=== PATIENT | female | born 1965 | race Caucasian/White ===

== ENCOUNTER 2018-05-17 21:43 | Outpatient (REF) | payer BC, SELFPAY ==
[2018-05-17 22:33] LABS: ALT 70 U/L (12-78); AST 60 U/L (15-37); Albumin 3.6 g/dL (3.4-5.0); Alkaline Phosphatase 70 U/L (46-116); Anion Gap 6.1 mmol/L (3-11); BUN 12 mg/dL (7-18); Bilirubin, Total 0.3 mg/dL (0.2-1.0); CO2 31.9 mmol/L (21.0-32.0); CREATININE 0.66 mg/dL (0.55-1.02); Chloride 103 mmol/L (98-107); Glucose 150 mg/dL (70-100); Potassium 3.7 mmol/L (3.5-5.1); Sodium 141 mmol/L (136-145); Total Protein 7.2 g/dL (6.4-8.2)
[2018-05-17 22:35] LABS: COMMENT (LAB VIEW ONLY) 107.91 mg/dL; Microalb ug/mg Crea 6.8 ug/mg Cr
== END 2018-05-17 22:03 ==
LOC: NCHCN 21:43
PROVIDERS: PCP Internal Medicine; Visit Provider Family Medicine
DX: E78.5 Hyperlipidemia, unspecified (principal); I10 Essential (primary) hypertension; E11.9 Type 2 diabetes mellitus without complications
CPT/HCPCS: 80053; 82043; 82570

== ENCOUNTER 2019-06-06 17:20 | Outpatient (REF) | payer OTHER, SELFPAY ==
[2019-06-06 22:03] LABS: ALT 54 U/L (14-59); AST 40 U/L (15-37); Albumin 3.8 g/dL (3.4-5.0); Alkaline Phosphatase 69 U/L (46-116); Anion Gap 10.2 mmol/L (3-11); BUN 13 mg/dL (7-18); Bilirubin, Total 0.3 mg/dL (0.2-1.0); CO2 27.8 mmol/L (21.0-32.0); CREATININE 1.02 mg/dL (0.55-1.02); Calcium 8.9 mg/dL (8.5-10.1); Calculated LDL 82 mg/dL (<100); Chloride 105 mmol/L (98-107); Cholesterol 146 mg/dL (<200); Estimated GFR 56.91 (mL/min/1.73m2); Glucose 184 mg/dL (74-106); HDL Cholesterol 43 mg/dL (40-60); Potassium 3.9 mmol/L (3.5-5.1); Sodium 143 mmol/L (136-145); Triglyceride 106 mg/dL (<150)
[2019-06-06 22:06] LABS: Microalb ug/mg Crea 13.1 ug/mg Cr
== END 2019-06-06 17:40 ==
LOC: NCHCN 17:20
PROVIDERS: PCP Family Medicine; Visit Provider Family Medicine
DX: E78.5 Hyperlipidemia, unspecified (principal); K76.0 Fatty (change of) liver, not elsewhere classified; I10 Essential (primary) hypertension; E11.65 Type 2 diabetes mellitus with hyperglycemia; Z00.00 Encounter for general adult medical examination without abnormal findings
CPT/HCPCS: 80053; 80061; 82043; 82570

== ENCOUNTER 2020-06-20 11:45 | Outpatient (REF) | payer OTHER, SELFPAY ==
[2020-06-20 14:02] LABS: ALT 47 U/L (14-59); AST 25 U/L (15-37); Albumin 3.7 g/dL (3.4-5.0); Alkaline Phosphatase 62 U/L (46-116); Anion Gap 10.4 mmol/L (3-11); BUN 11 mg/dL (7-18); Bilirubin, Total 0.5 mg/dL (0.2-1.0); CO2 24.6 mmol/L (21.0-32.0); CREATININE 0.7 mg/dL (0.55-1.02); Calcium 8.6 mg/dL (8.5-10.1); Calculated LDL 90 mg/dL (<100); Chloride 104 mmol/L (98-107); Cholesterol 160 mg/dL (<200); Glucose 141 mg/dL (74-106); HDL Cholesterol 50 mg/dL (40-60); Potassium 3.8 mmol/L (3.5-5.1); Sodium 139 mmol/L (136-145); Total Protein 7.1 g/dL (6.4-8.2); Triglyceride 102 mg/dL (<150)
[2020-06-20 14:09] LABS: COMMENT (LAB VIEW ONLY) 61.49 mg/dL; Microalb ug/mg Crea 9.1 ug/mg Cr
== END 2020-06-20 11:46 | disposition home or self-care (01) ==
LOC: NCHCN 11:45
PROVIDERS: PCP Family Medicine; Visit Provider Family Medicine
DX: E11.65 Type 2 diabetes mellitus with hyperglycemia (principal); E78.5 Hyperlipidemia, unspecified; I10 Essential (primary) hypertension
CPT/HCPCS: 80053; 80061; 82043; 82570

== ENCOUNTER 2022-02-09 22:26 | Outpatient (REF) | payer OTHER, SELFPAY ==
[2022-02-09 21:42] LABS: Anion Gap 7.9 mmol/L (3-11); BUN 8 mg/dL (7-18); CO2 29.1 mmol/L (21.0-32.0); CREATININE 0.8 mg/dL (0.55-1.02); Calcium 9.3 mg/dL (8.5-10.1); Calculated LDL 65 mg/dL (<100); Chloride 104 mmol/L (98-107); Cholesterol 152 mg/dL (<200); Estimated GFR 86.96 (mL/min/1.73m2); Glucose 155 mg/dL (74-106); HDL Cholesterol 51 mg/dL (40-60); Potassium 4.2 mmol/L (3.5-5.1); Sodium 141 mmol/L (136-145); Triglyceride 182 mg/dL (<150)
[2022-02-09 22:02] LABS: COMMENT (LAB VIEW ONLY) 137.65 mg/dL; Microalb ug/mg Crea 16.3 ug/mg Cr
== END 2022-02-09 22:27 | disposition home or self-care (01) ==
LOC: NCHCN 22:26
PROVIDERS: PCP Family Medicine; Visit Provider Family Medicine
DX: I10 Essential (primary) hypertension (principal); E78.5 Hyperlipidemia, unspecified
CPT/HCPCS: 80048; 80061; 82043; 82570

== ENCOUNTER 2022-05-18 15:49 | Outpatient (REF) | payer OTHER, SELFPAY ==
--- NOTE | 2022-05-18 11:00 | PAPFT_PTH ---
PATIENT: Mindy Gar LOC: [facility]#:[id number] AGE/SX: 56/F ROOM: RE05/18/[address]: Bonny Santos : 1965 BED: DIS: 05/18/2022 SPEC #: [id number] RECD: 05/18/22 18:06 STATUS: ABBY REMalinda #: [id number] ANA: 05/18/22 11:[address]: Bonny Santos DEPT: [facility] Cytology RECD BY: Citlali Balderrama Tissues: 1 - CX/ENDOCX FOR PAP SMEARS Procedures: PAP THIN PREP/[facility] Screening HPV DNA PROBE Comments: [id number]
== END 2022-05-18 15:50 | disposition home or self-care (01) ==
LOC: NCHCN 15:49
PROVIDERS: PCP Family Medicine; Visit Provider Family Medicine
DX: Z12.4 Encounter for screening for malignant neoplasm of cervix (principal); Z11.51 Encounter for screening for human papillomavirus (HPV); Z00.00 Encounter for general adult medical examination without abnormal findings
CPT/HCPCS: 88142; 87624

== ENCOUNTER 2022-10-07 21:34 | Outpatient (REF) | payer OTHER, SELFPAY ==
[2022-10-07 21:41] LABS: Anion Gap 9.7 mmol/L (3-11); BUN 11 mg/dL (7-18); CO2 28.3 mmol/L (21.0-32.0); CREATININE 0.7 mg/dL (0.55-1.02); Calcium 9.3 mg/dL (8.5-10.1); Chloride 107 mmol/L (98-107); Estimated GFR 102.07 (mL/min/1.73m2); Glucose 177 mg/dL (74-106); Potassium 3.9 mmol/L (3.5-5.1); Sodium 145 mmol/L (136-145)
== END 2022-10-07 21:35 | disposition home or self-care (01) ==
LOC: NCHCN 21:34
PROVIDERS: PCP Family Medicine; Visit Provider Family Medicine
DX: I10 Essential (primary) hypertension (principal); E11.65 Type 2 diabetes mellitus with hyperglycemia
CPT/HCPCS: 80048

== ENCOUNTER 2023-01-19 19:30 | Outpatient (REF) | payer OTHER, SELFPAY ==
--- NOTE | 2023-01-19 18:45 | ENDOMET_PTH ---
PATIENT: Mindy Gar LOC: [facility] U#:[id number] AGE/SX: 57/F ROOM: RE01/19/[address]: Bonny Santos : 1965 BED: DIS: 01/19/2023 SPEC #: [id number] RECD: 01/20/23 12:52 STATUS: ABBY REMalinda #: [id number] ANA: 01/19/23 18:[address]: Bonny Santos DEPT: Surgical Specimen RECD BY: Citlali Balderrama Tissues: 1 - ENDOMETRIUM BX/YAKELIN Procedures: GROSS AND MICRO LEVEL 4 Comments: [id number]
[2023-01-19 22:00] LABS: HGB 13.8 g/dL (11.2-15.7); MCH 25.8 pg (27.0-33.0); MCHC 31.4 % (32.0-36.0); MCV 82 fL (80-95); MPV 9.5 fL (8.0-11.0); Platelet Count 349 10^3/uL (130-400); RBC 5.35 10^6/uL (3.93-5.22); RDW 14.7 % (11.7-14.6); RDW-SD 44.3 fL; WBC 9.58 10^3/uL (4.4-10.8)
[2023-01-19 22:12] LABS: ALT 18 U/L (14-59); AST 22 U/L (15-37); Albumin 3.4 g/dL (3.4-5.0); Alkaline Phosphatase 104 U/L (46-116); Anion Gap 11.6 mmol/L (3-11); BUN 10 mg/dL (7-18); Bilirubin, Total 0.2 mg/dL (0.2-1.0); CO2 25.4 mmol/L (21.0-32.0); CREATININE 0.7 mg/dL (0.55-1.02); Calcium 10.1 mg/dL (8.5-10.1); Chloride 101 mmol/L (98-107); Estimated GFR 101.44 (mL/min/1.73m2); Glucose 163 mg/dL (74-106); Potassium 3.8 mmol/L (3.5-5.1); Sodium 138 mmol/L (136-145); Total Protein 8.2 g/dL (6.4-8.2)
[2023-01-21 13:46] LABS: Albumin 49.1 % (55.8-66.1); Albumin g/dL 3.5 g/dL (3.6-5.2); Comment (See Note); Total Protein 7.2 g/dL (6.3-8.2)
[2023-02-24 12:36] LABS: Immunotyping, Serum (See Note)
== END 2023-01-19 19:31 | disposition home or self-care (01) ==
LOC: NCHCN 19:30
PROVIDERS: PCP Family Medicine; Visit Provider Family Medicine
DX: C79.51 Secondary malignant neoplasm of bone (principal); N95.0 Postmenopausal bleeding; N85.8 Other specified noninflammatory disorders of uterus
CPT/HCPCS: 80053; 85027; 88305; 84165; 86320

== ENCOUNTER 2023-04-07 06:20 | Inpatient (IN) | payer OTHER, SELFPAY ==
[2023-04-07] VITALS (19 sets, daily range): BP systolic 134–162; BP diastolic 67–92; PULSE 102–119; RESP 15–17; TEMP 36.6–36.8; O2SAT 88–96
--- OUTSIDE RECORDS SUMMARY | 2023-04-07 09:13 | XMS_ITS | CCD ---
Author Name Unknown Address [address] [place] [address] [phone] Organization Unknown Address [address] [place] [address] [phone] Care Team Providers Care Slate Splitter Name Role Phone FRIDA SHANKS Attending Physician [phone] Vital Signs Unknown or Not Available. Allergies Allergy Code Allergy Type Reaction Status MORPHINE 7052 Drug allergy ITCHING Active OXYCODONE 7804 Drug allergy Active Procedures Unknown or Not Available. History of Immunizations Unknown or Not Available. Problems Unknown or Not Available. Results Unknown or Not Available. Active Medications Unknown or Not Available. Medications Administered During Visit Unknown or Not Available. Encounters Encounter Diagnosis Diagnosis Code Start Date Imaging of abdomen abnormal [id number] 06/2022 Social History Smoking Status Code Start Date End Date Never smoker [id number] Patient Decision Aids Unknown or Not Available. Discharge Instructions You were admitted to [facility] on 01/25/2023 09:17 with a principal diagnosis of Abnormal findings on diagnostic imaging of other abdominal regions, including retroperitoneum You were discharged from [facility] on 01/25/2023 09:17 Should you have any questions prior to discharge, please contact a member of your healthcare team. If you have left the hospital and have any questions, please contact your primary care physician. Chief Complaint and Reason For Visit Chief Complaint Date of Onset CANCER METASTATIC TO BONE Function Status Unknown or Not Available. Plan of Care Unknown or Not Available. Referral/Transition of Care Unknown or Not Available.
--- OUTSIDE RECORDS SUMMARY | 2023-04-07 09:14 | XMS_ITS | CCD ---
Author Name Unknown Address [address] [place] [address] [id number] Organization Unknown Address [address] [place] [address] [phone] Care Team Providers Care Application Manager Name Role Phone FRIDA SHANKS Attending Physician [phone] Vital Signs Unknown or Not Available. Allergies Allergy Code Allergy Type Reaction Status MORPHINE 7052 Drug allergy ITCHING Active OXYCODONE 7804 Drug allergy Active Procedures Unknown or Not Available. History of Immunizations Unknown or Not Available. Problems Problem Code Start Date Resolved Date Status Diabetes 2 [id number] 01/13/2023 Resolved Hypercholesterolemia 68763288 01/13/2023 Reso lved Results Unknown or Not Available. Active Medications Unknown or Not Available. Medications Administered During Visit Unknown or Not Available. Encounters Encounter Diagnosis Diagnosis Code Start Date Pain in right hip [id number] 10/12/2022 Social History Smoking Status Code Start Date End Date Never smoker [id number] Patient Decision Aids Unknown or Not Available. Discharge Instructions You were admitted to [facility] on 10/12/2022 14:43 with a principal diagnosis of Pain in right hip You were discharged from [facility] on 10/12/2022 14:43 Should you have any questions prior to discharge, please contact a member of your healthcare team. If you have left the hospital and have any questions, please contact your primary care physician. Chief Complaint and Reason For Visit Unknown or Not Available. Function Status Unknown or Not Available. Plan of Care Unknown or Not Available. Referral/Transition of Care Unknown or Not Available.
--- OUTSIDE RECORDS SUMMARY | 2023-04-07 09:14 | XMS_ITS | CCD ---
Author Name Unknown Address [address] [place] [address] [phone] Organization Unknown Address [address] [place] [address] [phone] Care Team Providers Care Soda Jerker Name Role Phone PARAG GORDON Attending Physician [phone] PARAG GORDON Er Physician [phone] CYN Mccormack Registered Nurse [phone] LANDEN Marcano Registered Nurse [phone] Vital Signs Vital Sign Value Unit Date/Time Recent/Initial ? BMI (Body Mass Index) 36.61 kg/m^2 01/13/2023 23: 40 Initial VS Weight Measured 220 lbs 01/13/2023 23:40 Ini tial VS Height 65 in 01/13/2023 23:40 Initial VS BSA (Body Surface Area) 2.14 m^2 01/13/2023 2 3:40 Initial VS BP Systolic 182 mmHg 01/13/2023 23:40 Initial VS BP Diastolic 83 mmHg 01/13/2023 23:40 Initia l VS Respiratory Rate 22 bpm 01/13/2023 23:40 In itial VS Heart Rate 109 bpm 01/13/2023 23:40 Initial VS O2 % BldC Oximetry 99 % 01/13/2023 23:40 Initial VS Body Temperature 36.4 degrees 01/13/2023 23:40 In itial VS Allergies Allergy Code Allergy Type Reaction Status MORPHINE 7052 Drug allergy ITCHING Active OXYCODONE 7804 Drug allergy Active Procedures Unknown or Not Available. History of Immunizations Unknown or Not Available. Problems Problem Code Start Date Resolved Date Status Diabetes 2 12684320 01/13/2023 Resolved Hypercholesterolemia 08481401 01/13/2023 Reso lved Results Unknown or Not Available. Active Medications Medication Code Dose Units Frequency Route Modificatio n Start Date/Time ER-HYDROCODONE/ACET 6 PACK: 5MG/325MG [id number] 1 TAB PRN Q6H PO 12/25 Medications Administered During Visit Medication Dose Units Frequency Route Date/Time of Last Dose KETOROLAC INJ SDV: 30MG/1ML 30 MG X1 IM 01/14/2023 00:02 PredniSONE TABLET: 20MG 40 MG X1 PO 01/14/2023 00:02 ER-HYDROCODONE/ACET 6 PACK: 5MG/325MG 1 TAB PRN Q6H PO 01/14/2023 02:4 2 LORazepam TABLET: 2MG 2 MG X1 PO 01/14/2023 02:42 Encounters Encounter Diagnosis Diagnosis Code Start Date Closed fracture of fifth lumbar vertebra [id number] 01/13/2023 Social History Smoking Status Code Start Date End Date Never smoker 526819187 Patient Decision Aids Unknown or Not Available. Discharge Instructions You were admitted to [facility] on 01/13/2023 23:30 with a principal diagnosis of Other fracture of fifth lumbar vertebra, initial encounter for closed fracture You were discharged from [facility] on 01/14/2023 02:57 Should you have any questions prior to discharge, please contact a member of your healthcare team. If you have left the hospital and have any questions, please contact your primary care physician. Chief Complaint and Reason For Visit Chief Complaint Date of Onset BACK PAIN Function Status Unknown or Not Available. Plan of Care Unknown or Not Available. Referral/Transition of Care Unknown or Not Available.
--- OUTSIDE RECORDS SUMMARY | 2023-04-07 09:14 | XMS_ITS | CCD ---
Author Name Unknown Address [address] [place] [address] [phone] Organization Unknown Address [address] [place] [address] [phone] Care Team Providers Care Assembler Product Name Role Phone FRANCA VU Attending Physician [phone] Vital Signs Unknown or Not Available. Allergies Allergy Code Allergy Type Reaction Status MORPHINE 7052 Drug allergy ITCHING Active OXYCODONE 7804 Drug allergy Active Procedures Unknown or Not Available. History of Immunizations Unknown or Not Available. Problems Problem Code Start Date Resolved Date Status Diabetes 2 16661926 01/13/2023 Resolved Hypercholesterolemia 54760256 01/13/2023 Reso lved Results [facility] COVID RHEONIX* - Brittni ect Date/Time: 03/12/2021 16:33 Test Name Code Test Result Test Units Test Ref Rang e SOURCE= Anterior nasal N/A Tier- EXPOSURE N/A SARS COV2 RNA: 08335-9 NEGATIVE N/A REFERENCE RANGE: NEGAT Active Medications Unknown or Not Available. Medications Administered During Visit Unknown or Not Available. Encounters Encounter Diagnosis Diagnosis Code Start Date Exposure to SARS-CoV-2 [id number] Social History Smoking Status Code Start Date End Date Never smoker 392944910 Patient Decision Aids Unknown or Not Available. Discharge Instructions You were admitted to [facility] on 03/12/2021 11:18 with a principal diagnosis of Contact with and (suspected) exposure to COVID-19 You had the following tests done:[facility] COVID RHEONIX* You were discharged from [facility] on 03/12/2021 11:18 Should you have any questions prior to [...]
--- OUTSIDE RECORDS SUMMARY | 2023-04-07 09:16 | XMS_ITS | Continuity of Care Document ---
Author Name Unknown Organization [facility] or [facility] Address [address] [place] [address] Care Team Providers Care Assembler Deck [employer] Hull Name Role Phone Tom [facility] Primary Care Physici an Encounter [facility] [id number] Date(s): 06/22/22 - 06/22/22 [facility] [address] [place] [address] Encounter Diagnosis Obstructive sleep apnea(Discharge Diagnosis) - 06/22/22 Hypersomnia(Discharge Diagnosis) - 06/22/22 Periodic limb movement disorder(Discharge Diagnosis) - 06/22/22 Discharge Disposition: Home or Self Care Attending Physician: David Clements MD Allergies, Adverse Reactions, Alerts Substance Reaction Severity Status morphine Unknown Active Assessment and Plan Extracted from: Title:Last Sleep Clinic Note Author:Parminder Ward Date:08/05/21 Print Patient Name BALJIT GAR (55yo, F) ID# [id number] Appt. Date/Time 08/05/2021 10:15AM 1965 Service Dept. P_Sleep Medicine Provider DAVID CLEMENTS MD, BOARD CERTIFIED SLEEP PHYSICIAN Insurance Med Primary: [facility] ([facility]) Insurance # : [id number] Policy/Group # : [id number] Prescription: [employer] - This member could not be found in the payer's files. Please verify coverage and all member demographic information. details Chief Complaint SLEEP CLINIC Follow-Up CPAP/BIPAP Therapy, Telehealth - Video/Zoom Patient's Care Team Primary Care Provider: FRIDA SHANKS MD: [address], [place] [address], , Other: [facility] MEDICAL RECORDS: [address] [place] [address] [address], [place] [address], , Other: [facility]: [address]PT, [place] [address], , Patient's Pharmacies [facility] ([facility]): [address], [place] [address], , Vitals 08/05/2021 10:13 am Ht: 5 ft 6 in Stated (167.64 cm) Wt: 227 lbs Stated (102.97 kg) BMI: 36.6 Allergies Reviewed Allergies MORPHINE Medications Reviewed Medications Afluria Quad 60 mcg (15 mcg x 4)/0.5 mL intramuscular susp. 01/18/20 filled [facility]CO aspirin 81 mg tablet,delayed release TAKE ONE TABLET BY MOUTH EVERY DAY 06/15/21 filled surescripts atorvastatin 20 mg tablet TAKE ONE TABLET BY MOUTH AT BEDTIME 05/05/21 filled surescripts B Complex-Vitamin B12 tablet TAKE 1 TABLET BY MOUTH EVERY DAY 04/13/21 prescribed KAMILA WHITNEY NP B-Complex With B-12 2.5 mg-2.5 mg-5 mg-100 mcg tablet Take 1 tablet(s) every day by oral route for 90 days. Internal Note: not taking 10/07/20 prescribed DAVID CLEMENTS MD, Board Certified Sleep Physician clobetasoL 0.05 % topical cream 03/14/20 filled surescripts clotrimazole 1 % topical cream APPLY TOPICALLY TO THE AFFECTED AREA TWICE DAILY FOR 14 DAYS 10/24/20 filled surescripts cyanocobalamin (vit B-12) 1,000 mcg tablet TAKE 1 TABLET BY MOUTH ONCE DAILY IN THE MORNING 11/16/20 filled surescripts diclofenac 1 % topical gel APPLY EXTERNALLY TO THE AFFECTED AREA TWICE DAILY 04/11/20 filled surescripts famotidine 20 mg tablet TAKE TWO TABLETS BY MOUTH EVERY DAY 07/28/21 filled surescripts fluticasone propionate 50 mcg/actuation nasal spray,suspension INSTILL 2 SPRAYS TO EACH NOSTRIL ONCE DAILY 07/24/20 filled surescripts glipiZIDE 10 mg tablet TAKE 1 AND 1/2 TABLETS BY MOUTH TWO TIMES A DAY 05/24/21 filled surescripts Januvia 100 mg tablet TAKE ONE TABLET BY MOUTH EVERY DAY 06/17/21 filled surescripts Jardiance 25 mg tablet TAKE ONE TABLET BY MOUTH EVERY DAY 07/29/21 filled surescripts metFORMIN 1,000 mg tablet TAKE ONE TABLET BY MOUTH TWICE A DAY 06/17/21 filled surescripts miconazole nitrate 2 % topical cream APPLY TOPICALLY TO THE AFFECTED AREA TWICE DAILY FOR 14 DAYS 10/24/20 filled surescripts modafiniL 100 mg tablet TAKE 1 TO 2 TABLETS BY MOUTH DAILY IN THE MORNING AND AT NOON 10/09/20 filled surescripts modafiniL 200 mg tablet take 1 to 2 tablets as needed 08/05/21 prescribed DAVID CLEMENTS MD, Board Certified Sleep Physician Wicho Bai Lancets 30 gauge 08/13/18 filled [facility] OneTouch Ultra Blue Test Strip TEST TWICE DAILY 08/31/20 filled surescripts OneTouch Ultra Test strips TEST TWICE DAILY 10/28/20 filled surescripts OneTouch Ultra2 Meter USE 1 KIT DIRECTED TWICE A DAY 09/29/20 filled surescripts Vitamin D3 50 mcg (2,000 unit) capsule TAKE 2 CAPSULES BY MOUTH EVERY DAY 04/13/21 prescribed KAMILA WHITNEY NP Vaccines None recorded. Problems Reviewed Problems Non-alcoholic fatty liver - Onset: 07/25/2019 Cramp in lower leg associated with rest Bilateral carpal tunnel syndrome Backache Gastroesophageal reflux disease Lichen sclerosus et atrophicus Vitamin D deficiency Depressive disorder Hyperglycemia due to type 2 diabetes mellitus Hypertensive disorder Obesity Adenomatous polyp of colon Type 2 diabetes mellitus Hypocalcemia Hyperlipidemia Essential hypertension Hypersomnia Obstructive sleep apnea syndrome Family History Family History not reviewed (last reviewed 03/04/2020) Mother; HTN, Diabetic controlled Father; Heart Failure Social History Reviewed Social History Education and Occupation Are you currently employed?: Yes 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 : No Other Animal exposure?: No (Notes: grad dog that visits) Hard of hearing or deaf in one or both ears?: No Live alone or with others?: with others Gender Identity and LGBTQ Identity Surgical History Surgical History not reviewed (last reviewed 03/04/2020) Breast Biopsy Past Medical History Past Medical History not reviewed (last reviewed 03/04/2020) Notes: EDX[12/23/2011] Sleep Study-PSG[08/25/2008] Titration Study[10/06/2008] Screening Name Score Notes [place] Sleepiness 13 HPI Baljit Gar is a pleasant 55 year-old woman, prepared foods service team member at [employer], with past medical history of hypertension, diabetes, depression, hyperlipidemia, obesity BMI 38, and obstructive sleep apnea who returns for cpap therapy follow up. PREVIOUS SLEEP EVALUATION: Diagnostic polysomnogram on 08/25/08 at [facility] (weight 235 pounds, BMI 37.9) showed mild obstructive sleep apnea with AHI 10 per hour. Events were prominent in supine position. Subtle obstructive events were not scored. Baseline SPO2 95%, geovani SPO2 86%. Arousal index 4.5, no periodic limb movement disorder. Sinus rhythm. Titration polysomnogram 10/06/08 at [facility] tested CPAP 4-12 cm. Optimal pressure at 12 cm. as there were scattered hypopneas on 9-10 cm. especially during REM. Baseline SPO2 94% to 96% with no desaturations. The patient was last seen at [facility] by Dr. Lakeshia [address] on 06/03/10. At that point she increased her settings to auto CPAP 12-16. Noted the patient had average of 7 hours of use daily and AHI of 2 per hour. Unclear what the settings originally were. The patient then transitioned to my care on 02/22/17. At that time she was having issues with her CPAP machine. Her humidifier was not working optimally, it woke her up and she could not tolerate using the CPAP without the humidifier but she was not able to get humidifier parts as her machine was so old. Therefore, I ordered a new machine for her. Auto CPAP 10-16 cm. which is at lower pressure than what was on her original machine set at auto CPAP 12-16 cm. It was noted that on the latter pressure the patient's 90th percentile device pressure was 13 and CPAP mean pressure 12.2 cm. suggesting that she may not need such a high pressure. Average AHI was 2.1 per hour. It was noted also that her [place] sleepiness scale was 16 out of 24. Overnight oximetry done on 03/23/17 on her new machine. On the CPAP it showed 0 minutes with SPO2 under rate goal to 88%. JENNIFER 1.6 and it was considered normal. She did get the message that my office left for her to inform her of this. TODAY: on auto cpap 10 to 16cm via airfit n20 medium nasal mask, no chin strap Patient is needing refill on pap supplies. still working some night shifts, not as much anymore. she is more sedentary which is probably contributing to her sleepiness. Has not used modafinil in a month ROS Additionally reports: A 10-point REVIEW OF SYSTEM was obtained and reviewed, includes CONSTITUTIONAL, EYES, NOSE, THROAT, RESPIRATORY, HEART, GASTROINTESTINAL, UROLOGIC, MUSCULOSKELETAL, PSYCHIATRY, SKIN systems. Pertinent symptoms are discussed in history, otherwise negative. Physical Exam GENERAL: well appearing, appearing stated age, no acute distress, obese build HEENT: atraumatic skull, anicteric RESPIRATORY: quiet respiration, able to speak in full sentences without dyspnea, no accessory muscle use, SKIN: no facial skin rash, no facial skin lesions PSYCHIATRIC: well groomed, fluent speech, good insight, linear thought process, good eye contact, balanced affect NEUROLOGIC: alert, oriented, symmetric facial expression Clinical Data Reviewed: 1. [place] Sleepiness Scale: 13 out of 24, no med today 2. Sleep study results as above. 3. Machine Download Data: Respironics Dreamstation Auto CPAP PAP Settings: Auto CPAP 10 to 16 CmH2O Date Range: 07/06/21 to 08/04/21 Days with Usage >=4 hours: 90 % Avg Usage per Day Used: 5 Hours 45 Minutes, Mean/Median Pressure: 10.2 cmh2O 90th-tile/95th-tile Pressure: 10.8 cmH2O Avg Time in Large Leak Daily- 4 seconds Average AHI: 1.3 per hour Normal flow limitation index. Normal vibratory snore index. Daily details do not show significant periods at maximum pressure 4. No pertinent labs available. PCP 02/2019 note reports A1c at 7.6%, down from 8.0% from prior visit. ALT 70/AST 60 on 05/17/18; Cr 0.66 08/23/2019 labs, results were mailed to patient vit D toal 31 B12 300's Ferr 69 TSH 2.2 Assessment / Plan I provided greater than 40 minutes in the care of this patient, more than half the time was spent in phone counseling. This visit was performed virtually using synchronous audio-visual connection via Zoom. As such, the physical examination is necessarily limited. The risks and benefits of the use of this alternative platform were discussed with the patient and or guardian and verbal consent was obtained. My assessment and plans are based on such examination. Further evaluation, including in-person examination, may be needed depending on the response to management or today's recommendation. Patient is at home. Provider is at office. 1. Obstructive sleep apnea syndrome - Mild PSG 08/2008 AHI 10/hr (underestimated as some obstructive events not counted in index). auto cpap 10-16cm 07/25/19: no changes, excellent tx AHI and usage. however having residual hypersomnia, as below 03/04/20: no changes, advised trying to get to bed earlier so she can use cpap for entire night, but usage at 6.5 hrs so very good overall, tx AHI very good at 1.7/hr, residual hypersomnia as below 10/07/20: cont apap apap 10 to 16, excellent compliance and tx AHI 08/05/21: cont apap 10 to 16cm working well w/ excellent compliance. got replacement of recall machine at home, hasnt opened it yet. Sending in order for new supplies to [facility]. G47.33: Obstructive sleep apnea (adult) (pediatric) SLEEP APNEA: CARE INSTRUCTIONS PAP SUPPLIES - [x] Please provide any needed replacement supplies for PAP therapy including mask cushion, headgear, filters, hose, humidifier supplies. Mask airfit N20 medium Qty: 1 Unit Refills: 0 Supplier: [facility] 2. Hypersomnia - ESS 16/24 despite 7h15m avg use and 90% compliance on cpap with AHI 2/hr. 07/05/17 - ESS improved to 03/18, she is taking drowsy driving precautions, not interested in starting modafinil/meds. she is willing to get vit D level checked, if this is not optimized, may also contribute to hypersomnia 07/25/19: she does not recall she ever got the labs from 2018. but persisting with hypersomnia at ESS 15 today. really affects her daily function. may be 2/2 metabolic, PLMD, residual hypersomnia despite DINORA is well treated. we will first get labs done to r/o other causes. will have short interval follow up in 3 months to re- evaluate for this. 03/04/20: given low Vit b12, would advise taknig supplement. she tried vit D3,bcomplex,b12 in August and had constipation so stopped. asked her to re-start w/ b12 first. if she has residual hypersomnia, we discussed taking modafinil 100mg to 200mg on PRN basis, she says she would likely use for 1 to 2 days per week around noon when she may struggle at work. skin reaction side effect d/w pt in detail. she will monitor and d/c immediately if this occurs. 10/07/20: notes she recently started modafinil 100mg bid PRN for longer night shifts or 12 hour shifts. notes it is definitely effective and she plans to use it in future. refills given for 60 pills with 4 refills, likely enough to get her to next apptmt in 10months, asked her to fill them consistently before expiration in 6 months 08/05/21: ESS 13 today. Elevated but she is not taking her modafinil but she is taking her vitamins. Advised patient to cont taking her vit d3, vitamin b complex, and vit b12, as well her modafinil 100-200mg daily prn. d/w pt she may experiment to see if taking 200mg at once or 100mg bid works better for her. G47.10: Hypersomnia, unspecified modafinil 200 mg tablet - take 1 to 2 tablets as needed Qty: 120 tablet(s) Refills: 5 Pharmacy: [id number] Note to Pharmacy: do not fill when pt request; keep this Rx on file, TY! 3. Decreased vitamin D - 07/25/19: will empirically start vit D3 2000 i.u. when covid 19 lockdown halts, then she will also get labs done. low vit D can be one reason for excessive daytime sleepiness and fatigue. Suspected based on lack of supplementation, BMI, lack of sun exposure and sleep-wake symptoms 03/04/20: vit D total ok at 31, will supplement to maintain tiffany during winter 08/05/21: cont supplements E55.9: Vitamin D deficiency, unspecified 4. Periodic limb movement disorder - 07/25/19: can have some restless sleep on some nights. unsure if she may have developed PLMD that may contribute to hypersomnia. will obtain ferritin 03/04/20: ferr normal at 69, no supplementation needed G47.61: Periodic limb movement disorder Patient Instructions We will continue your cpap therapy, no changes in pressure. it is working great to treat your sleep apnea! Supplements that I recommend that you get is Vitamin D3 2000 iu daily, and [facility] Fully active B complex 1 tab daily. You can buy this on [employer]. Continue taking Modafinil 100 to 200mg daily as needed for residual sleepiness (refills given for 60 tabs with 5 refills, expires in 6 months) We will follow up in person in 10 months. Discussion Notes Remember to always take precautions on drowsy driving. If you experience sleepiness while driving, find a safe area to mold puller and take a break. Research suggests taking a power nap (15 to 20 minutes) and/or coffee (or caffeine containing food such as dark chocolate) may be effective aides. As always, you should use your judgement on whether to drive at all, if you are sleep deprived or feeling sleepy. Thank you for the kind opportunity to participate in your medical care. You expressed good understanding of your diagnosis and treatment, and agreed to proceed with the plan we discussed together. If you have any questions or concerns prior to your next appointment, please call Sleep Clinic. Return to Office to see DAVID CLEMENTS MD, Board Certified Sleep Physician at P_Sleep Medicine on or around 06/07/2022 Functional Status 06/22/22 Other exposure to Infectious Disease Non e Medications !-Afluria PF Quadrivalent [id number] 0 Refill(s) Start Date: 05/24/22 Status: Ordered aspirin 81 mg oral capsule 81 mg = 1 cap, Oral, Daily, do not exceed 48 capsules in 24 hours, # 30 cap, 0 Refill(s) Start Date: 05/24/22 Status: Ordered atorvastatin 20 mg oral tablet 20 mg = 1 tab, Oral, Daily, # 30 tab, 0 Refill(s) Start Date: 05/24/22 Status: Ordered B-Complex with B-12 oral tablet 1 tab, Oral, Daily, # 30 tab, 0 Refill(s) Start Date: 05/24/22 Status: Ordered clobetasol 0.05% topical cream 1 maikel, Topical, BID, # 15 g, 0 Refill(s) Start Date: 05/24/22 Status: Ordered clotrimazole 1% topical cream 1 maikel, Topical, BID, # 12 g, 0 Refill(s) Start Date: 05/24/22 Status: Ordered cyanocobalamin 1000 mcg oral tablet 1,000 mcg = 1 tab, Oral, Daily, # 30 tab, 0 Refill(s) Start Date: 05/24/22 Status: Ordered diclofenac 1% topical gel 1 maikel, Topical, QID, # 100 g, 0 Refill(s) Start Date: 05/24/22 Status: Ordered famotidine 20 mg oral tablet 20 mg = 1 tab, Oral, BID, # 60 tab, 0 Refill(s) Start Date: 05/24/22 Status: Ordered fluticasone propionate 0 Refill(s) Start Date: 05/24/22 Status: Ordered glipiZIDE 10 mg oral tablet 10 mg = 1 tab, Oral, Daily, # 30 tab, 0 Refill(s) Start Date: 05/24/22 Status: Ordered Januvia 100 mg oral tablet 100 mg 1 tab, Oral, Daily, # 30 tab, 0 Refill(s) Start Date: 05/24/22 Status: Ordered Jardiance 25 mg oral tablet 25 mg = 1 tab, Oral, every morning, # 30 tab, 0 Refill(s) Start Date: 05/24/22 Status: Ordered metFORMIN 1000 mg oral tablet 1,000 mg = 1 tab, Oral, BID, # 60 tab, 0 Refill(s) Start Date: 05/24/22 Status: Ordered miconazole 2% topical cream 1 maikel, Topical, BID, # 4 g, 0 Refill(s) Start Date: 05/24/22 Status: Ordered modafinil 100 mg oral tablet 100 mg = 1 tab, Oral, every morning, # 90 tab, 0 Refill(s) Start Date: 05/24/22 Status: Ordered modafinil 200 mg oral tablet 200 mg = 1 tab, Oral, every morning, 0 Refill(s) Start Date: 05/24/22 Status: Ordered Vitamin D3 50 mcg (2000 intl units) oral tablet, chewable 50 mcg = 1 tab, Oral, Daily, # 30 EA, 0 Refill(s) Start Date: 05/24/22 Status: Ordered Problem List Condition Confirmation Course Effective Dates Status H ealth Status Informant Adenomatous polyp of colon Confirmed Active Backache Confirmed Active Bilateral carpal tunnel syndrome Confirmed Active Cramp in lower leg associated with rest Confirmed Active Depressive disorder Confirmed Active Essential hypertension Confirmed Active GERD (gastroesophageal reflux disease) Confirmed Active Hyperglycemia due to type 2 diabetes mellitus Confirmed Active Hyperlipidemia Confirmed Active Hypersomnia Confirmed Active Hypertensive disorder Confirmed Active Hypocalcemia Confirmed Active Lichen sclerosus et atrophicus Confirmed Active Nonalcoholic fatty liver Confirmed Active DINORA (obstructive sleep apnea) Confirmed Active Obstructive sleep apnea Confirmed Active Vitamin D deficiency Confirmed Active Vital Signs Most recent to oldest [Reference Range]: 1 Peripheral Pulse Rate [60-100 bpm] 90 bp m (06/22/22 3:10 PM) Blood Pressure [90-140/60-90 mmHg] 135/7 8mmHg (06/22/22 3:10 PM) Weight 101.15 kg (06/22/22 3:10 PM) Weight Measured (lbs) 222.997 lb (06/22/22 3:10 PM) Height 167 cm (06/22/22 3:10 PM) Height/Length Measured (inches) 65.75 in ch (06/22/22 3:10 PM) BSA Measured 2.17 m2 (06/22/22 3:10 PM) Body Mass Index 36.27 kg/m2 (06/22/22 3:10 PM) Social History Social History Type Response Tobacco Never tobacco user T obacco Use:. Sex Female Polysomnography (sleep) study * Parminder Ward: PERFORM Event Display: Sleep Study Authored Date: [id number] * Parminder Ward: PERFORM Event Display: Sleep Study Authored Date: [id number] Progress note * Parminder Ward: PERFORM Event Display: Progress Note - Physician Authored Date: [id number] * Parminder Ward: PERFORM Event Display: Progress Note - Physician Authored Date: [id number] Physician Outpatient Note * Parminder Ward: PERFORM Event Display: Office Clinic Note Physician Authored Date: [id number] Print Patient Name BALJIT GAR (55yo, F) ID# [id number] Appt. Date/Time 08/05/2021 10:15AM 1965 Service Dept. P_Sleep Medicine Provider DAVID CLEMENTS MD, BOARD CERTIFIED SLEEP PHYSICIAN Insurance Med Primary: [facility] [place] Insurance # : [id number] Policy/Group # : [id number] Prescription: [employer] - This member could not be found in the payer's files. Please verify coverage and all member demographic information. details Chief Complaint SLEEP CLINIC Follow-Up CPAP/BIPAP Therapy, Telehealth - Video/Zoom Patient's Care Team Primary Care Provider: FRIDA SHANKS MD: [address], [place] [address], , Other: [facility] MEDICAL RECORDS: [address] [place] [address] [address], [place] [address], , Other: [facility]: [address] [facility] [address], [place] [address], , Patient's Pharmacies [facility] ([facility]): [address], [place] [address], , Vitals 08/05/2021 10:13 am Ht: 5 ft 6 in Stated (167.64 cm) Wt: 227 lbs Stated (102.97 kg) BMI: 36.6 Allergies Reviewed Allergies MORPHINE Medications Reviewed Medications Afluria Quad 60 mcg (15 mcg x 4)/0.5 mL intramuscular susp. 01/18/20 filled [facility] aspirin 81 mg tablet,delayed release TAKE ONE TABLET BY MOUTH EVERY DAY 06/15/21 filled surescripts atorvastatin 20 mg tablet TAKE ONE TABLET BY MOUTH AT BEDTIME 05/05/21 filled surescripts B Complex-Vitamin B12 tablet TAKE 1 TABLET BY MOUTH EVERY DAY 04/13/21 prescribed KAMILA WHITNEY NP B-Complex With B-12 2.5 mg-2.5 mg-5 mg-100 mcg tablet Take 1 tablet(s) every day by oral route for 90 days. Internal Note: not taking 10/07/20 prescribed DAVID CLEMENTS MD, Board Certified Sleep Physician clobetasoL 0.05 % topical cream 03/14/20 filled surescripts clotrimazole 1 % topical cream APPLY TOPICALLY TO THE AFFECTED AREA TWICE DAILY FOR 14 DAYS 10/24/20 filled surescripts cyanocobalamin (vit B-12) 1,000 mcg tablet TAKE 1 TABLET BY MOUTH ONCE DAILY IN THE MORNING 11/16/20 filled surescripts diclofenac 1 % topical gel APPLY EXTERNALLY TO THE AFFECTED AREA TWICE DAILY 04/11/20 filled surescripts famotidine 20 mg tablet TAKE TWO TABLETS BY MOUTH EVERY DAY 07/28/21 filled surescripts fluticasone propionate 50 mcg/actuation nasal spray,suspension INSTILL 2 SPRAYS TO EACH NOSTRIL ONCE DAILY 07/24/20 filled surescripts glipiZIDE 10 mg tablet TAKE 1 AND 1/2 TABLETS BY MOUTH TWO TIMES A DAY 05/24/21 filled surescripts Januvia 100 mg tablet TAKE ONE TABLET BY MOUTH EVERY DAY 06/17/21 filled surescripts Jardiance 25 mg tablet TAKE ONE TABLET BY MOUTH EVERY DAY 07/29/21 filled surescripts metFORMIN 1,000 mg tablet TAKE ONE TABLET BY MOUTH TWICE A DAY 06/17/21 filled surescripts miconazole nitrate 2 % topical cream APPLY TOPICALLY TO THE AFFECTED AREA TWICE DAILY FOR 14 DAYS 10/24/20 filled surescripts modafiniL 100 mg tablet TAKE 1 TO 2 TABLETS BY MOUTH DAILY IN THE MORNING AND AT NOON 10/09/20 filled surescripts modafiniL 200 mg tablet take 1 to 2 tablets as needed 08/05/21 prescribed DAVID CLEMENTS MD, Board Certified Sleep Physician Wicho Bai Lancets 30 gauge 08/13/18 filled [facility] OneTouch Ultra Blue Test Strip TEST TWICE DAILY 08/31/20 filled surescripts OneTouch Ultra Test strips TEST TWICE DAILY 10/28/20 filled surescripts OneTouch Ultra2 Meter USE 1 KIT DIRECTED TWICE A DAY 09/29/20 filled surescripts Vitamin D3 50 mcg (2,000 unit) capsule TAKE 2 CAPSULES BY MOUTH EVERY DAY 04/13/21 prescribed KAMILA WHITNEY NP Vaccines None recorded. Problems Reviewed Problems Non-alcoholic fatty liver - Onset: 07/25/2019 Cramp in lower leg associated with rest Bilateral carpal tunnel syndrome Backache Gastroesophageal reflux disease Lichen sclerosus et atrophicus Vitamin D deficiency Depressive disorder Hyperglycemia due to type 2 diabetes mellitus Hypertensive disorder Obesity Adenomatous polyp of colon Type 2 diabetes mellitus Hypocalcemia Hyperlipidemia Essential hypertension Hypersomnia Obstructive sleep apnea syndrome Family History Family History not reviewed (last reviewed 03/04/2020) Mother; HTN, Diabetic controlled Father; Heart Failure Social History Reviewed Social History Education and Occupation Are you currently employed?: Yes 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 : No Other Animal exposure?: No (Notes: grad dog that visits) Hard of hearing or deaf in one or both ears?: No Live alone or with others?: with others Gender Identity and LGBTQ Identity Surgical History Surgical History not reviewed (last reviewed 03/04/2020) Breast Biopsy Past Medical History Past Medical History not reviewed (last reviewed 03/04/2020) Notes: EDX[12/23/2011] Sleep Study-PSG[08/25/2008] Titration Study[10/06/2008] Screening Name Score Notes [place] Sleepiness 13 HPI Baljit Gar is a pleasant 55 year-old woman, prepared foods service team member at [employer], with past medical history of hypertension, diabetes, depression, hyperlipidemia, obesity BMI 38, and obstructive sleep apnea who returns for cpap therapy follow up. PREVIOUS SLEEP EVALUATION: Diagnostic polysomnogram on 08/25/08 at [facility] (weight 235 pounds, BMI 37.9) showed mild obstructive sleep apnea with AHI 10 per hour. Events were prominent in supine position. Subtle obstructive events were not scored. Baseline SPO2 95%, geovani SPO2 86%. Arousal index 4.5,no periodic limb movement disorder. Sinus rhythm. Titration polysomnogram 10/06/08 at [facility] tested CPAP 4-12 cm. Optimal pressure at 12 cm. as there were scattered hypopneas on 9- 10 cm. especially during REM. Baseline SPO2 94% to 96% with no desaturations. The patient was last seen at [facility] by Dr. Lakeshia Way on 06/03/10. At that point she increased her settings to auto CPAP 12-16. Noted the patient had average of 7 hours of use daily and AHI of 2 per hour. Unclear what the settings originally were. The patient then transitioned to my care on 02/22/17. At that time she was having issues with her CPAP machine. Her humidifier was not working optimally, it woke her up and she could not tolerate using the CPAP without the humidifier but she was not able to get humidifier parts as her machine was so old. Therefore, I ordered a new machine for her. Auto CPAP 10-16 cm. which is at lower pressure than what was on her original machine set at auto CPAP 12-16 cm. It was noted that on the latter pressure the patient's 90th percentile device pressure was 13 and CPAP mean pressure 12.2 cm. suggesting that she may not need such a high pressure. Average AHI was 2.1 per hour. It was noted also that her [place] sleepiness scale was 16 out of 24. Overnight oximetry done on 03/23/17 on her new machine. On the CPAP it showed 0 minutes with SPO2 under rate goal to 88%. JENNIFER 1.6 and it was considered normal. She did get the message that my office left for her to inform her of this. TODAY: on auto cpap 10 to 16cm via airfit n20 medium nasal mask, no chin strap Patient is needing refill on pap supplies. still working some night shifts, not as much anymore. she is more sedentary which is probably contributing to her sleepiness. Has not used modafinil in a month ROS Additionally reports: A 10-point REVIEW OF SYSTEM was obtained and reviewed, includes CONSTITUTIONAL, EYES, NOSE, THROAT,RESPIRATORY, HEART, GASTROINTESTINAL, UROLOGIC, MUSCULOSKELETAL, PSYCHIATRY, SKIN systems. Pertinent symptoms are discussed in history, otherwise negative. Physical Exam GENERAL: well appearing, appearing stated age, no acute distress, obese build HEENT: atraumatic skull, anicteric RESPIRATORY: quiet respiration, able to speak in full sentences without dyspnea, no accessory muscle use, SKIN: no facial skin rash, no facial skin lesions PSYCHIATRIC: well groomed, fluent speech, good insight, linear thought process, good eye contact, balanced affect NEUROLOGIC: alert, oriented, symmetric facial expression Clinical Data Reviewed: 1. [place] Sleepiness Scale: 13 out of 24, no med today 2. Sleep study results as above. 3. Machine Download Data: Respironics Dreamstation Auto CPAP PAP Settings: Auto CPAP 10 to 16 CmH2O Date Range: 07/06/21 to 08/04/21 Days with Usage >=4 hours: 90 % Avg Usage per Day Used: 5 Hours 45 Minutes, Mean/Median Pressure: 10.2 cmh2O 90th-tile/95th-tile Pressure: 10.8 cmH2O Avg Time in Large Leak Daily- 4 seconds Average AHI: 1.3 per hour Normal flow limitation index. Normal vibratory snore index. Daily details do not show significant periods at maximum pressure 4. No pertinent labs available. PCP 02/2019 note reports A1c at 7.6%, down from 8.0% from prior visit. ALT 70/AST 60 on 05/17/18; Cr0.66 08/23/2019 labs, results were mailed to patient vit D toal 31 B12 300's Ferr 69 TSH 2.2 Assessment / Plan I provided greater than 40 minutes in the care of this patient, more than half the time was spent in phone counseling. This visit was performed virtually using synchronous audio-visual connection via Zoom. As such, thephysical examination is necessarily limited. The risks and benefits of the use of this alternative platform were discussed with the patient and or guardian and verbal consent was obtained. My assessment and plans are based on such examination. Further evaluation, including in-person examination, may be needed depending on the response to management or today's recommendation. Patient is at home. Provider is at office. 1. Obstructive sleep apnea syndrome - Mild PSG 08/2008 AHI 10/hr (underestimated as some obstructive events not counted in index). auto cpap 10-16cm 07/25/19: no changes, excellent tx AHI and usage. however having residual hypersomnia, as below 03/04/20: no changes, advised trying to get to bed earlier so she can use cpap for entire night, but usage at 6.5 hrs so very good overall, tx AHI very good at 1.7/hr, residual hypersomnia as below 10/07/20: cont apap apap 10 to 16, excellent compliance and tx AHI 08/05/21: cont apap 10 to 16cm working well w/ excellent compliance. got replacement of recall machine at home, hasnt opened it yet. Sending in order for new supplies to [facility]. G47.33: Obstructive sleep apnea (adult) (pediatric) SLEEP APNEA: CARE INSTRUCTIONS PAP SUPPLIES - [x] Please provide any needed replacement supplies for PAP therapy including mask cushion, headgear, filters, hose, humidifier supplies. Mask airfit N20 medium Qty: 1 Unit Refills: 0 Supplier: [facility] 2. Hypersomnia - ESS despite 7h15m avg use and 90% compliance on cpap with AHI 2/hr. 07/05/17 - ESS improved to 03/18, she is taking drowsy driving precautions, not interested in starting modafinil/meds. she is willing to get vit D level checked, if this is not optimized, may also contribute to hypersomnia 07/25/19: she does not recall she ever got the labs from 2018. but persisting with hypersomnia at ESS15 today. really affects her daily function. may be 2/2 metabolic, PLMD, residual hypersomnia despite DINORA is well treated. we will first get labs done to r/o other causes. will have short interval follow up in 3 months to re-evaluate for this. 03/04/20: given low Vit b12, would advise taknig supplement. she tried vit D3,bcomplex,b12 in August and had constipation so stopped. asked her to re-start w/ b12 first. if she has residual hypersomnia,we discussed taking modafinil 100mg to 200mg on PRN basis, she says she would likely use for 1 to 2days per week around noon when she may struggle at work. skin reaction side effect d/w pt in detail. she will monitor and d/c immediately if this occurs. 10/07/20: notes she recently started modafinil 100mg bid PRN for longer night shifts or 12 hour shifts. notes it is definitely effective and she plans to use it in future. refills given for 60 pills with 4 refills, likely enough to get her to next apptmt in 10months, asked her to fill them consistently before expiration in 6 months 08/05/21: ESS 13 today. Elevated but she is not taking her modafinil but she is taking her vitamins.Advised patient to cont taking her vit d3, vitamin b complex, and vit b12, as well her modafinil 100-200mg daily prn. d/w pt she may experiment to see if taking 200mg at once or 100mg bid works better for her. G47.10: Hypersomnia, unspecified modafinil 200 mg tablet - take 1 to 2 tablets as needed Qty: 120 tablet(s) Refills: 5 Pharmacy: [id number] Note to Pharmacy: do not fill when pt request; keep this Rx on file, TY! 3. Decreased vitamin D - 07/25/19: will empirically start vit D3 2000 i.u. when covid 19 lockdown halts, then she will also get labs done. low vit D can be one reason for excessive daytime sleepiness and fatigue. Suspected based on lack of supplementation, BMI, lack of sun exposure and sleep-wake symptoms 03/04/20: vit D total ok at 31, will supplement to maintain tiffany during winter 08/05/21: cont supplements E55.9: Vitamin D deficiency, unspecified 4. Periodic limb movement disorder - 07/25/19: can have some restless sleep on some nights. unsure if she may have developed PLMD that maycontribute to hypersomnia. will obtain ferritin 03/04/20: ferr normal at 69, no supplementation needed G47.61: Periodic limb movement disorder Patient Instructions We will continue your cpap therapy, no changes in pressure. it is working great to treat your sleepapnea! Supplements that I recommend that you get is Vitamin D3 2000 iu daily, and [facility] Best Fully active B complex 1 tab daily. You can buy this on [employer]. Continue taking Modafinil 100 to 200mg daily as needed for residual sleepiness (refills given for 60 tabs with 5 refills, expires in 6 months) We will follow up in person in 10 months. Discussion Notes Remember to always take precautions on drowsy driving. If you experience sleepiness while driving, find a safe area to mold puller and take a break. Research suggests taking a power nap (15 to 20 minutes) and/or coffee (or caffeine containing food such as dark chocolate) may be effective aides. As a lways, you should use your judgement on whether to drive at all, if you are sleep deprived or feeling sleepy. Thank you for the kind opportunity to participate in your medical care. You expressed good understanding of your diagnosis and treatment, and agreed to proceed with the plan we discussed together. Ifyou have any questions or concerns prior to your next appointment, please call Sleep Clinic. Return to Office to see DAVID CLEMENTS MD, Board Certified Sleep Physician at [facility] on or around 06/07/2022 Electronically Signed on 05/24/22 11:56 AM [address] Patient Care team information Care Team Personnel Name: Frida Palomo MD Position: No Access Member Role: Primary Care Physician Address: Address: [address] [address]- [place]
--- NOTE | 2023-04-07 09:43 | ED.PROG_ITS ---
Date of service: 04/07/23 Time of Service: 07:00 Medical Decision Making Signout accepted from off going provider during downtime. Please see her full downtime ED provider note. Patient has metastatic cancer, has had radiation, but has not started chemotherapy. Last night she took Dilaudid which she regularly takes for pain, but she took it at the same time as Ativan. She says since then she has been feeling very loopy and dizzy. 1020: CT scan discussed with the radiologist. Concern for metastatic disease versus CVA. Will get MRI with and without contrast. Updated patient on findings. She reports that she is still feeling a little poorly. Will give IV fluids and let the patient eat while waiting for the MRI. 1400: MRI results reviewed. Concern for metastatic disease with multiple lesions. I contacted [facility] gynecology oncology who follows the patient. At this time they would like the patient transferred to expedite the initiation of her treatments. At this time there are no beds available, so the patient will need to be admitted here awaiting transfer and acceptance. She is excepted for transfer by Dr. Gennaro Ocampo, Employment Supervisor onc. 1520: Discussed with hospitalist, patient accepted for admission here. She will be given dexamethasone every 8 hours. She will be loaded with Keppra. Medical Records Medical records reviewed: Yes I reviewed the patient's medical records. Lab Data Lab results reviewed: Yes I reviewed the patient's lab results. Discharge Plan Disposition Patient Disposition: Admit to [facility] Discharge Details Chief Complaint: GenMedical Clinical Impression: Metastasis to brain, Uterine cancer Primary Care Provider: Bonny Santos ED Provider: Laura London Home Meds and New Rx's Prescriptions: No Action fentanyl 25 mcg/hr patch 72 hour 1 patch transdermal Q72H MDD 125 mcg/hr Qty: 10 0RF Rx Instructions: For pain related to metastatic cancer. dose increase from 100mcg/hr to 125 mcg/hr Januvia 100 mg tablet 100 mg PO DAILY Jardiance 25 mg tablet 25 mg PO DAILY atorvastatin 20 mg tablet 20 mg PO DAILY fluticasone propionate [Allergy Relief (fluticasone)] 50 mcg/actuation spray,suspension 2 spray intranasal DAILY Rx Instructions: administer into each nostril estradiol 0.01 % (0.1 mg/gram) cream 1 appful vaginal .three times a week lorazepam 1 mg tablet 1 mg PO TID PRN fentanyl 100 mcg/hr patch 72 hour 1 patch transdermal Q72H MDD 1 patch Qty: 10 0RF Rx Instructions: for cancer related pain hydromorphone 4 mg tablet 4 - 8 mg PO Q4H PRN MDD 12 tabs PRN (Reason: pain) Qty: 60 0RF Rx Instructions: for cancer related pain dexamethasone 4 mg tablet 4 mg PO DAILY Qty: 30 0RF Rx Instructions: for cancer related pain ondansetron HCl 8 mg tablet 8 mg PO Q8H PRN (Reason: nausea and vomiting) Qty: 20 2RF
--- NOTE | 2023-04-07 09:55 | DI.CT_ITS ---
Exam(s) CT HEAD WO EXAM: CT HEAD WO CLINICAL HISTORY: dizziness. TECHNIQUE: Imaging Protocol: Axial computed tomography images with coronal and sagittal reformatted images were created and reviewed COMPARISON: No exams were available for comparison FINDINGS: Ventricles and Extra axial spaces: Normal in size and morphology for the patient's age. Hemorrhage: None. Cerebral parenchyma: There is an area of decreased attenuation in the left thalamus with mass effect on the elena. There is an central round area which may represent a metastatic lesion. There also are as of decreased attenuation seen in the left temporal lobe and the high right parietal lobe. Midline shift: None. Brainstem/Cerebellum: Normal. Calvarium: Normal. Visualized Paranasal sinuses/Mastoids: Clear. Soft Tissues: Unremarkable. IMPRESSION: 1. Areas of decreased attenuation in the left thalamus, left temporal lobe and high right parietal lo be. There is a question of a central 9 mm mass in the left thalamus. Metastatic disease or primary carcinoma should be considered. An MRI without and with contrast is recommended for further evaluati on. 2. Findings were discussed with Dr. London at 10:10 a.m. on 04/07/2013. RADIATION DOSE DELIVERED: Total DLP DATA REPOSITORY: All CT scans at this facility are submitted to the National Radiology Data Registry (NRDR) Dose Index Registry (DIR) with the [employer] (ACR). RADIATION OPTIMIZATION: All CT scans at this facility use at least one of these dose optimization te chniques: automated exposure control; mA and/or kV adjustment per patient size (includes targeted exa ms where dose is matched to clinical indication); or iterative reconstruction.
--- NOTE | 2023-04-07 10:00 | DI.MRI_ITS ---
Exam(s) MR BRAIN WO/W EXAM: MR BRAIN WO/W CLINICAL HISTORY: brain lesions mets. v . stroke TECHNIQUE: Multiplanar multisequence MRI of the brain was performed. CONTRAST MATERIAL: IV Contrast: 17 mL of Dotarem contrast administered. COMPARISON: CT CT HEAD WO from 04/07/2023 FINDINGS: VENTRICLES AND EXTRA AXIAL SPACES: Normal in size and morphology for the patient's age. HEMORRHAGE: None. CEREBRAL PARENCHYMA: No focus of restricted diffusion to suggest acute infarct. MIDLINE SHIFT: None. BRAINSTEM/CEREBELLUM: Normal. CALVARIUM: Normal. ENHANCEMENT: There are multiple (at least 10 lesions) enhancing intracranial metastases. The largest is in the left right parietal lobe just to the right of midline. It measures 1.8 x 1.7 cm. There i s surrounding edema. There is evidence of hemorrhage within this lesion. There is a 1.3 x 1.1 cm me tastasis in the left thalamus which causes mild mass effect on the adjacent elena. There is a 0.9 x 0 .7 cm lesion in the left temporal lobe associated with edema. VISUALIZED PARANASAL SINUSES/MASTOIDS: Clear. [place]: Normal flow void. PITUITARY GLAND: Unremarkable. OTHER FINDINGS: IMPRESSION: Findings of intracranial metastatic disease. DATA REPOSITORY:
[2023-04-07] MEDS: Normal Saline 1,000 ML 1000 ML IV (10:13)
[2023-04-07 11:05] LABS: ALT 32 U/L (14-59); AST 20 U/L (15-37); Alkaline Phosphatase 135 U/L (46-116); Anion Gap 8.9 mmol/L (3-11); BUN 11 mg/dL (7-18); Bilirubin, Total 0.5 mg/dL (0.2-1.0); CO2 29.1 mmol/L (21.0-32.0); CREATININE 0.4 mg/dL (0.55-1.02); Calcium 9.3 mg/dL (8.5-10.1); Chloride 95 mmol/L (98-107); Estimated GFR 116.09 (mL/min/1.73m2); Glucose 186 mg/dL (74-106); Potassium 3.5 mmol/L (3.5-5.1); Sodium 133 mmol/L (136-145)
[2023-04-07 11:07] LABS: ETHANOL BLOOD < 3.0 mg/dL (<10)
[2023-04-07 11:08] LABS: Bilirubin Negative (Negative); Blood Trace-intact (Negative); Clarity Clear (Clear); Glucose >=1000 mg/dL (Negative); Ketones 40 mg/dL (Negative); Leukocyte Esterase Negative (Negative); Nitrite Negative (Negative); Urobilinogen 0.2 mg/dL (Up to 0.2); pH 5.5 (5-8)
[2023-04-07 11:09] LABS: Bacteria Rare HPF (Negative); Casts Negative LPF (Negative); Crystals Negative HPF (Negative); Epithelial Cells Moderate HPF (Negative); Mucus Negative (Negative); RBC 0-2 HPF (0-2)
[2023-04-07] MEDS: HYDROmorphone 4 MG TAB PO ×2 (11:09→13:28)
[2023-04-07 11:10] LABS: C & S Indicated? No/Sq. Contamination; HCT 38.6 % (36.0-46.0); MCH 24.5 pg (27.0-33.0); MCHC 31.1 % (32.0-36.0); MCV 79 fL (80-95); WBC 8.51 10^3/uL (4.4-10.8)
[2023-04-07 11:11] LABS: Absolute Basophil Count 0.02 10^3/uL (0.0-0.2); Absolute Eosinophil Count 0.15 10^3/uL (0.0-0.7); Absolute Lymphocyte Count 1.69 10^3/uL (1.2-3.4); Absolute Monocyte Count 0.72 10^3/uL (0.1-0.8); Absolute Neutrophil Count 5.83 10^3/uL (1.2-6.7); Basophils % 0.2; Eosinophils % 1.8; Immature Grans % 1.2; Lymphocytes % 19.9; MPV 9.1 fL (8.0-11.0); Monocytes % 8.5; Neutrophils % 68.4; Platelet Count 335 10^3/uL (130-400); RDW 17.2 % (11.7-14.6); RDW-SD 48.8 fL
[2023-04-07] MEDS: Normal Saline Flush 10 ML SYR IVP (11:59)
[2023-04-07] MEDS: Gadoterate meglumine 20 ML SYRINGE 17 ML IVP (12:00)
[2023-04-07] MEDS: Dexamethasone 4 MG/ML VIAL 8 MG IVP (14:29)
--- NOTE | 2023-04-07 15:19 | HPE_ITS ---
Date of service: 04/07/23 Time of Service: 15:20 Assessment and Plan Assessment and plan (1) Metastasis to brain: Status: Acute Assessment and plan: Initiate keppra 1000 mg IVP q12h, continue decadron at dose of 18 to 24 mg/day. I have adjusted her dose to 6 mg IVP q8hr. seizure precautions Professional time spent interviewing and examining patient, discussion of goals of care with hospital team (care management, nursing and consulting professionals) was 60 minutes. (2) Uterine cancer: Status: Acute Assessment and plan: s/p radiaton treatments but has not yet begun chemotherapy. Plan for transfer tomorrow to nutrition intern/oncology at [facility] to discuss palliative treatment Qualifiers: Malignant neoplasm of uterus location: unspecified site of uterus Qualified Code(s): C55 - Malignant neoplasm of uterus, part unspecified (3) Paresis of left lower extremity: Status: Acute Assessment and plan: Likely secondary to spine metastasis with involvement of her lumbosacral spinal cord. These results were discussed with her SHIFT NURSE MANAGER oncologist. As her symptoms have been present for over 10 days there is no need for urgent neurosurgical evaluation tonight. Plan will be for her to be transferred to [facility] tomorrow morning to the service of Dr. Tiffani Graham. Further evaluation will done there. (4) Metastasis to bone: Status: Acute (5) Metastasis to liver: Status: Acute (6) Metastasis to lung: Status: Acute Qualifiers: Laterality: bilateral Qualified Code(s): C78.01 - Secondary malignant neoplasm of right lung; C78.02 - Secondary malignant neoplasm of left lung History of Present Illness History of Present Illness Chief Complaint: dizziness, weakness Narrative: 57-year-old female with history of endometrial cancer with bony metastasis to her spine who presented emergency department early this morning having woken up feeling like she is in a fog complaining of dizziness and weakness. Patient is controlling her metastatic cancer pain with fentanyl patches along with hydromorphone for breakthrough pain. Last night she took a lorazepam to help her sleep and ever since has felt weak and drowsy. Workup in the emergency department included CT scan of her brain that suggested metastatic disease with decreased areas of attenuation in the left thalamus left temporal lobe and high right parietal lobe and a central 9 mm mass in the left thalamus. Patient subsequently underwent MRI of the brain with and without contrast that showed intracranial metastatic disease with multiple lesions at least 10 lesions. There was surrounding brain edema. The ED provider contacted [facility] SHIFT NURSE MANAGER oncology and the patient was excepted in transfer to [facility] for tomorrow. They had no beds available for today. They did recommend initiation of Keppra and Decadron. Patient was loaded with Keppra 1500 mg IV and Decadron 8 mg IV qid. Patient denies any headache blurred vision double vision trouble speaking or trouble swallowing. Patient has undergone radiation treatment but has not yet started chemotherapy for her endometrial cancer. Treatment was given in February and she just finished her radiation treatment about 10 days ago. She states midway through her radiation treatment she knows she was having left leg weakness and has trouble picking up her left leg. She says that she reported this to her provider. Review of Systems All systems reviewed & are unremarkable except as noted in HPI and below PFSH All Active Problems (Updated 04/07/23 @ 23:35 by Moose Corona MD) Paresis of left lower extremity (Acute) Metastasis to brain (Acute) Metastasis to lung (Acute) Uterine cancer (Acute) Palliative care patient (Acute) Cancer related pain (Acute) Metastasis to bone (Acute) Metastasis to liver (Acute) Metastasis to lung of unknown origin (Acute) Postmenopausal bleeding (Acute) Lytic bone lesions on xray (Acute) Enlarged uterus (Acute) Medical History DINORA (obstructive sleep apnea) Elevated cholesterol Diabetes Surgical History History of bone marrow biopsy Hx of tubal ligation History of breast lump/mass excision History of surgery on wrist H/O section x2 Family History Other Diabetes Heart disease Social History Smoking/Tobacco Use Status: Never Smoking risk assessment performed?: Yes Alcohol Intake: current Alcohol Intake frequency: holidays/special occasions only Drug use: Never Substance use type: does not use Household members: spouse Housing: house What is your relationship status?: Panel score (0-1 are the most socially isolated patients): 1 Do you feel safe at home: Yes Do you feel safe in your relationship?: Yes History History 2 2 Para 2 Hx # Term Pregnancies Multiple births Hx # Pregnancies Ectopic pregnancies AB induced Hx Number of Living Children AB spontaneous Past Pregnancies Del. Date GA/Weeks # Preg Succ Route Wgt Sex Labor Lgth Anesth esia Location Prov [facility] 03/15/86 2891.651 g Female C [facility] 08/10/89 Yes 4337.477 g Male [facility] Meds Allergies and Home Medications Allergies Allergy/AdvReac Type Severity Reaction Status Date / Time morphine Allergy Intermediate Other (See Unverified 04/07/23 14:07 Comment) Home Medications Medication Instructions Recorded Confirmed Type atorvastatin 20 mg tablet 20 mg PO DAILY 01/24/23 04/07/23 History empagliflozin 25 mg tablet 25 mg PO DAILY 01/24/23 04/07/23 History (Jardiance) estradiol 0.01% (0.1 mg/gram) 1 appful vaginal .three times a 01/24/23 04/07/23 History vaginal cream week fluticasone propionate 50 2 spray intranasal DAILY 01/24/23 04/07/23 History mcg/actuation nasal spray,suspension (Allergy Relief (fluticasone)) sitagliptin phosphate 100 mg 100 mg PO DAILY 01/24/23 04/07/23 History tablet (Januvia) ondansetron HCl 8 mg tablet 8 mg PO Q8H PRN nausea and 03/15/23 04/07/23 Rx vomiting #20 tabs dexamethasone 4 mg tablet 4 mg PO DAILY #30 tabs 03/31/23 04/07/23 Rx fentanyl 100 mcg/hr transdermal 1 patch transdermal Q72H #10 ea 03/31/23 04/07/23 Rx patch lorazepam 1 mg tablet 1 mg PO TID PRN 03/31/23 04/07/23 History fentanyl 25 mcg/hr transdermal 1 patch transdermal Q72H #10 ea 04/01/23 04/07/23 Rx patch hydromorphone 4 mg tablet 4 mg PO Q4H PRN PRN pain 04/07/23 04/07/23 History Exam Narrative Exam Narrative: Middle-aged white female sitting up in her chair eating her dinner she is alert oriented to person place time circumstance although she does seem a little drowsy. Speech is clear no dysarthric speech she has no facial asymmetry full extraocular motions intact, PERRLA. Oropharynx noninjected no exudate she has her own teeth are in fair repair Neck supple nontender no JVD Lungs are clear to auscultation Heart regular rate and rhythm Abdomen soft nontender obese normal bowel sounds Lower extremities no peripheral cyanosis or edema Neurologic exam cranial nerves intact normal range of motion and strength in both upper extremities and right lower extremity and normal sensation over the same. Left leg however there is marked weakness with the hip flexors and extensors as well as the extensors at her knee and she has a foot drop on the left side. However sensation is intact to light touch DTRs are absent in the left knee and left ankle. They are normal on the right. Results Imaging Imaging Studies: Report of MRI of the brain with and without contrast was reviewed Labs 04/07/23 06:52 04/07/23 06:52 Labs: Laboratory Results - last 24 hr 04/07/23 06:52 WBC 8.51 RBC 4.90 Hgb 12.0 Hct 38.6 MCV 79 L MCH 24.5 L MCHC 31.1 L RDW 17.2 H Plt Count 335 MPV 9.1 Immature Gran % 1.2 Neutrophils % 68.4 Lymphocytes % 19.9 Monocytes % 8.5 Eosinophils % 1.8 Basophils % 0.2 Nucleated RBC % 0.0 Absolute Neutrophils 5.83 Absolute Lymphocytes 1.69 Absolute Monocytes 0.72 Absolute Eosinophils 0.15 Absolute Basophils 0.02 Sodium 133 L Potassium 3.5 Chloride 95 L Carbon Dioxide 29.1 Anion Gap 8.9 BUN 11 Creatinine 0.4 L Est GFR (CKD-EPI 2020) 116.09 Glucose 186 H Calcium 9.3 Total Bilirubin 0.5 AST 20 ALT 32 Alkaline Phosphatase 135 H Total Protein 7.0 Albumin 2.0 L Urine Color Yellow Urine Clarity Clear Urine pH 5.5 Ur Specific [place] 1.020 Urine Protein Negative Urine Ketones 40 H Urine Blood Trace-intact H Urine Nitrite Negative Urine Bilirubin Negative Urine Urobilinogen 0.2 Ur Leukocyte Esterase Negative Urine RBC 0-2 Urine WBC 10-20 H Ur Epithelial Cells Moderate Urine Crystals Negative Urine Bacteria Rare Urine Casts Negative Urine Mucus Negative Ur Culture Indicated? No/Sq. Contamination Urine Glucose >=1000 H Ethyl Alcohol < 3.0 Last Vital Signs Temp 36.6 C 04/07/23 13:29 Pulse 106 H 04/07/23 13:29 Resp 16 04/07/23 13:29 BP 134/69 04/07/23 13:29 Pulse Ox 92 04/07/23 13:29 Time Spent Time spent with Patient: 55-74 minutes Time was spent: preparing to see the patient(eg.review tests), obtaining and/or reviewing separately otained hiistory, ordering medications,tests, procedures, referring, communicating with other health career services officer (Discussion with ED provider as well as with [facility] BATHING SUIT MAKER oncology), indepentently interpreting results, counseling the patient and care coordination
[2023-04-07] MEDS: Enoxaparin 40 MG/0.4 ML SYR SC (17:41)
[2023-04-07] MEDS: Insulin Aspart 300 UNITS/3 ML PEN SC (17:45)
[2023-04-07] MEDS: Dexamethasone 10 MG/ML VIAL 6 MG IVP (21:29)
[2023-04-08 00:01] VITALS: BP 131/81; PULSE 92; RESP 18; TEMP 36.6; O2SAT 95
[2023-04-08] MEDS: Normal Saline Flush 10 ML SYR IVP ×3 (02:09→17:20)
[2023-04-08] MEDS: levETIRAcetam 1,000 MG in Normal Saline 100 ML 400 MG IVPB ×2 (02:10→14:27)
[2023-04-08] MEDS: Dexamethasone 10 MG/ML VIAL 6 MG IVP ×2 (05:39→14:51)
[2023-04-08 07:42] VITALS: BP 135/78; PULSE 75; RESP 16; TEMP 36; O2SAT 96
[2023-04-08] MEDS: SITagliptin 100 MG TAB PO (07:57)
[2023-04-08] MEDS: Insulin Aspart 300 UNITS/3 ML PEN SC ×3 (07:57→17:12)
[2023-04-08] MEDS: HYDROmorphone 4 MG TAB PO ×3 (08:06→18:21)
[2023-04-08] MEDS: Empaglifozin 25 MG TAB PO (08:13)
--- NOTE | 2023-04-08 10:45 | PDOC.CMIN ---
Date of service: 04/08/23 Time of Service: 10:45 Care Management Initial Assmt Initial Assessment REASON FOR HOSPITALIZATION:: Uterine cancer with mets PREVIOUS FUNCTIONAL STATUS/SOCIAL/FAMILY SUPPORTS:: Mindy was recently diagnosed with Uterine cancer with mets, appears per chart review that her pain has been challenging to manage in the community; followed closely by Palliative. CURRENT FUNCTIONAL STATUS:: Sitting up in chair, surrounded by family. Mindy and her family are gracious in interaction. She reports being very happy with her care. CM reviewed community based supports; provided resource folder with grants and funding opportunities per family request. Discussed situation with Alicia-lead at [facility] who advised referral for funding; CM faxed referral and continues to follow. ADVANCE DIRECTIVES:: None on file; followed closely by Palliative. Has patient been provided with info about the portal/API?: No Did the patient sign up for the portal?: No CODE STATUS:: Full Code INSURANCE COVERAGE / FINANCIAL ISSUES:: ANDREAS Quiles: Beatrice Legal Executive Assistant: P#[phone] (DC support-reviewed DME/funding discussion), F# [phone] (send DC summary when available) CURRENT HOME/COMMUNITY SERVICES/EQUIPMENT:: Oncology, Palliative care. PRIMARY CARE PHYSICIAN:: Bonny Santos POTENTIAL DISCHARGE NEEDS:: Anticipate transfer to [facility], Palliative will meet with Mindy while inpatient at [facility]. PATIENT/FAMILY EDUCATION NEEDS:: Review transfer, community based supports, DME navigation, inpatient Palliative care, grants and funding. ANTICIPATED BARRIERS TO DISCHARGE:: None identified. TRANSPORTATION:: EMS transfer. PLAN:: Palliative consult coordinated-Cesilia PABLO following Mindy closely. Discussed utilization and DC planning with JORDAN WICK from [employer]. DC summary to be faxed upon discharge. JEFFERY referral completed-per discussion with Alicia. Mindy has been accepted by LICENSED SALES PRODUCER oncology at [facility], awaiting bed availability. She will transport via EMS coordinated by RN Railway Track Plant Operator. PFSH All Active Problems (Updated 04/07/23 @ 23:35 by Moose Corona MD) Paresis of left lower extremity (Acute) Metastasis to brain (Acute) Metastasis to lung (Acute) Uterine cancer (Acute) Palliative care patient (Acute) Cancer related pain (Acute) Metastasis to bone (Acute) Metastasis to liver (Acute) Metastasis to lung of unknown origin (Acute) Postmenopausal bleeding (Acute) Lytic bone lesions on xray (Acute) Enlarged uterus (Acute) Medical History DINORA (obstructive sleep apnea) Elevated cholesterol Diabetes Surgical History History of bone marrow biopsy Hx of tubal ligation History of breast lump/mass excision History of surgery on wrist H/O section x2 Family History Other Diabetes Heart disease Social History Smoking/Tobacco Use Status: Never Smoking risk assessment performed?: Yes Alcohol Intake: current Alcohol Intake frequency: holidays/special occasions only Drug use: Never Substance use type: does not use Household members: spouse Housing: house What is your relationship status?: Panel score (0-1 are the most socially isolated patients): 1 Do you feel safe at home: Yes Do you feel safe in your relationship?: Yes History History 2 Para 2 Hx # Term Pregnancies Multiple births Hx # Pregnancies Ectopic pregnancies AB induced Hx Number of Living Children AB spontaneous Past Pregnancies Del. Date GA/Weeks # Preg Succ Route Wgt Sex Labor Lgth Anesthesia Location Prov Complic 03/15/86 6 lb [address] [facility] 08/10/[birth year] Yes 9 lb 9 oz [facility]
[2023-04-08 15:22] VITALS: BP 165/77; PULSE 92; RESP 16; TEMP 36.6; O2SAT 97
--- NOTE | 2023-04-08 15:36 | W.PALLCONSUL ---
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 Now with at least 10 brain mets noted on MRI. She has been seen recently by Palliative. Palliative was consulted for continuity of care. She has been seen 3x over the last month, 2 in person visits and one via TH. Her visits have been focused primarily on pain management due to her being uncomfortable during the visits. She is seen in her hospital room with her , Beryl and her [id number], Charisse present. She was sitting up in the recliner. She reports that her pain is well managed. She is on fentanyl 100 mcg/hr and still requiring PRN hydromorphone. Her outpatient plan was to increase the Fentanyl to 125 mcg/hr, which she wishes to proceed with. She is eating well. She denies nausea. She is having some difficulty with transfers due to LLE paresis. AD: Wishes for her to be her decision maker. She does not have this documented. Discussed the importance of getting these things in writing. She prefers not to do it today. CODE STATUS: She is a FULL CODE. We have briefly touched on code status in previous visits. Reviewed again today. She was very emotional and tearful throughout the conversation. She is clear that if she is not herself she does not wish to remain a FULL CODE. She is confident that Beryl knows what she wants. He feels comfortable that he does as well. Discussed the importance of completing a COLST form when she decides to be a DNR/DNI. She appears to be overwhelmed with the above discussion at this time. She is awaiting transfer to [facility] Her oncologist indicated that they need to expedite getting her treatment started. She is focused on getting to [facility] to start treatment. Assessment and Plan Assessment and plan (1) Uterine cancer: Status: Acute Qualifiers: Malignant neoplasm of uterus location: unspecified site of uterus Qualified Code(s): C55 - Malignant neoplasm of uterus, part unspecified (2) Metastasis to lung: Status: Acute Qualifiers: Laterality: bilateral Qualified Code(s): C78.01 - Secondary malignant neoplasm of right lung; C78.02 - Secondary malignant neoplasm of left lung (3) Metastasis to brain: Status: Acute (4) Metastasis to bone: Status: Acute (5) Metastasis to liver: Status: Acute (6) Cancer related pain: Status: Acute (7) Paresis of left lower extremity: Status: Acute (8) Palliative care patient: Status: Acute Assessment and plan: Mindy is a very pleasant 57 year old female with 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 Now with at least 10 brain mets noted on MRI. She has been seen recently by Palliative. Palliative was consulted for continuity of care. She has been given the message that she needs to get to [facility] to expedite her cancer treatment. She is focused on getting the treatment started. She is awaiting a bed at [facility], she has been accepted. Her pain is controlled. Increase fentanyl to 125 mcg/hr to cover the prn dilaudid doses. She is a full code. She appears overwhelmed by discussion of code status. She is emotional and tearful. She wants her to make decision for her when she cannot. Palliative will continue to follow her and discuss CODE status, prognosis, hospice, etc. She has a supportive family. F/u after discharge from [facility]. Review of Systems Narrative: See HPI. She has LLE paresis. PFSH All Active Problems Hospice care patient (Acute) Paresis of left lower extremity (Acute) Metastasis to brain (Acute) Metastasis to lung (Acute) Uterine cancer (Acute) Palliative care patient (Acute) Cancer related pain (Acute) Metastasis to bone (Acute) Metastasis to liver (Acute) Metastasis to lung of unknown origin (Acute) Postmenopausal bleeding (Acute) Lytic bone lesions on xray (Acute) Enlarged uterus (Acute) Medical History DINORA (obstructive sleep apnea) Elevated cholesterol Diabetes Surgical History History of bone marrow biopsy Hx of tubal ligation History of breast lump/mass excision History of surgery on wrist H/O section x2 Family History Other Diabetes Heart disease Social History Smoking/Tobacco Use Status: Never Smoking risk assessment performed?: Yes Alcohol Intake: current Alcohol Intake frequency: holidays/special occasions only Drug use: Never Substance use type: does not use Household members: spouse Housing: house What is your relationship status?: Panel score (0-1 are the most socially isolated patients): 1 Do you feel safe at home: Yes Do you feel safe in your relationship?: Yes History History 2 Para 2 Hx # Term Pregnancies Multiple births Hx # Pregnancies Ectopic pregnancies AB induced Hx Number of Living Children AB spontaneous Past Pregnancies Del. Date GA/Weeks # Preg Succ Route Wgt Sex Labor Lgth Anesthesia Location [facility] 03/15/86 2891.651 g Female [facility] 08/10/89 Yes 4337.477 g Male [facility] Exam Narrative Exam Narrative: General: very pleasant, middle aged female, sitting up in the recliner with legs elevated. She is awake and alert, answers questions appropriately. She is emotional/tearful throughout some of the visit. HEENT: normocephalic, atraumatic, EOMI, mmm. Neck: supple Respiratory: respirations appear even and unlabored. Extremities: LLE weakness. Results Last Vital Signs Temp 36.6 C 04/08/23 15:22 Pulse 92 H 04/08/23 15:22 Resp 16 04/08/23 15:22 BP 165/77 H 04/08/23 15:22 Pulse Ox 97 04/08/23 15:22 Labs 04/07/23 06:52 04/07/23 06:52
--- NOTE | 2023-04-08 16:43 | CHAPLAIN ---
Mindy was resting when I visited. I spoke mostly with her , explained my role and offered support. Mindy woke up briefly so I introduced myself to her. Her said he was aware that there is wood calker here. Mindy has uterine cancer with mets to bones and brain. She was struggling with pain control at home and came here. She is followed closely by Palliative Care.
[2023-04-08] MEDS: Enoxaparin 40 MG/0.4 ML SYR SC (17:12)
--- NOTE | 2023-04-08 17:32 | W.PM.DS.N ---
Date of service: 04/08/23 Time of Service: 17:34 DS: Diagnosis Discharge Diagnosis (1) Metastasis to brain: Status: Acute Asessment and Plan: Initiate keppra 1000 mg IVP q12h, continue decadron at dose of 18 to 24 mg/day. I have adjusted her dose to 6 mg IVP q8hr. seizure precautions (2) Uterine cancer: Status: Acute Asessment and Plan: s/p radiaton treatments but has not yet begun chemotherapy. 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 These results were discussed with her TELEMETRY REGISTERED NURSE oncologist. As her symptoms have been present for over 10 days there is no need for urgent neurosurgical evaluation tonight. Plan will be for her to be transferred to [facility] now to the service of Dr. Tiffani Graham. Further evaluation will done there. (4) Metastasis to bone: Status: Acute (5) Metastasis to liver: Status: Acute (6) Metastasis to lung: Status: Acute Discharge Plan Disposition Patient Disposition: Transfer-Acute Inpatient Care Specific Acute Inpt Facility: [facility] Condition: Good Discharge Details Reason For Visit: Uterine Cancer w/Brain Metastasis Admit Date/Time: 04/07/23 15:12 Admit Provider: Moose Corona Attending Provider: Moose Corona Primary Care Provider: Bonny Santos Hospital Course Hospital Course: Patient initially presented to the emergency department with feeling like she was in a fog and dizziness and weakness. After extensive workup in the emergency department MRI showed that she likely had multiple metastatic lesions for ovarian cancer to the brain with surrounding edema. ED provider discussed with [facility] who accepted patient for transfer today recommended initiating Keppra and Decadron. Patient remained stable during hospitalization at [facility] she was ultimately transferred to [facility] gynecology service. Home Meds and New Rx's Prescriptions: No Action fentanyl 25 mcg/hr patch 72 hour 1 patch transdermal Q72H MDD 125 mcg/hr Qty: 10 0RF Rx Instructions: For pain related to metastatic cancer. dose increase from 100mcg/hr to 125 mcg/hr Januvia 100 mg tablet 100 mg PO DAILY Jardiance 25 mg tablet 25 mg PO DAILY atorvastatin 20 mg tablet 20 mg PO DAILY fluticasone propionate [Allergy Relief (fluticasone)] 50 mcg/actuation spray,suspension 2 spray intranasal DAILY Rx Instructions: administer into each nostril estradiol 0.01 % (0.1 mg/gram) cream 1 appful vaginal .three times a week lorazepam 1 mg tablet 1 mg PO TID PRN fentanyl 100 mcg/hr patch 72 hour 1 patch transdermal Q72H MDD 1 patch Qty: 10 0RF Rx Instructions: for cancer related pain dexamethasone 4 mg tablet 4 mg PO DAILY Qty: 30 0RF Rx Instructions: for cancer related pain ondansetron HCl 8 mg tablet 8 mg PO Q8H PRN (Reason: nausea and vomiting) Qty: 20 2RF hydromorphone 4 mg tablet 4 mg PO Q4H PRN MDD 12 tabs PRN (Reason: pain) Rx Instructions: for cancer related pain Discharge Instructions Activity:: Activity as Tolerated Equipment/Supplies:: No Equipment Needed Diet:: As Tolerated Discharge Orders Discharge Orders: Discharge Order (Routine); Ordered 04/08/23 Ordered By: Malachi Adkins DS: Summary Time Spent with Patient providing and/or coordinating discharge services: Greater than 30 minutes Status at Discharge Functional status at discharge: wheelchair bound Overall status at discharge: patient is back to baseline Mental Status: mental status grossly normal Speech and Movement: speech and movement normal Mood: congruent mood Affect: normal affect Exam Narrative Exam Narrative: Middle-age female sitting up in the chair eating dinner in no acute distress, ANO x 4, heart regular rhythm, lungs clear to auscultation bilaterally, normal strength and sensation of bilateral upper extremities, marked weakness left lower extremity at the hip with intact sensation Psych Mental Status: mental status grossly normal Speech and Movement: speech and movement normal Mood: congruent mood Affect: normal affect DS: Data Vitals/I&O Vitals and I&O: Vital Signs Temperature 97.9 F 04/08/23 15:22 Temperature Source Tympanic 04/08/23 15:22 Pulse 92 H 04/08/23 15:22 Pulse Rhythm Regular 04/08/23 15:10 Respiratory Rate 16 04/08/23 15:22 Respiratory Effort Normal, Non-Labored 04/08/23 15:10 Respiratory Depth Normal 04/08/23 15:10 Respiratory Pattern Normal 04/08/23 15:10 Blood Pressure 165/77 H 04/08/23 15:22 Blood Pressure Mean 94 04/07/23 11:01 Blood Pressure Position Sitting 04/07/23 10:02 Pulse Oximetry 97 04/08/23 15:22 Oxygen Delivery Method Room Air 04/08/23 15:22 Oxygen Flow Rate 0 04/08/23 15:22 Pain Level 4 04/08/23 08:06 Comment pain in back/hips. PT reports its likely related to cancer. 04/07/23 10:02 Intake & Output 04/07/23 04/08/23 04/08/23 17:59 05:59 17:59 Intake Total 1115 / 1115 465 / 1580 Output Total 1949 / 2149 Balance 1115 / 1115 -1485 / -370 -215 / -0 Weight 180 lb Intake: IV 1115 / 1115 225 / 1340 Oral 240 / 240 Output: Urine 1949 Other: Urine Color Yellow Yellow Urine Appearance Clear Clear Clear Urine Odor Normal Normal Comment purwick inplace Stool Occult Blood Positive Stool Size Moderate Large Stool Characteristics Soft Formed Voiding Methods Bedside Commode Bedside Commode PFS All Active Problems (Updated 04/07/23 @ 23:35 by Moose Corona MD) Paresis of left lower extremity (Acute) Metastasis to brain (Acute) Metastasis to lung (Acute) Uterine cancer (Acute) Palliative care patient (Acute) Cancer related pain (Acute) Metastasis to bone (Acute) Metastasis to liver (Acute) Metastasis to lung of unknown origin (Acute) Postmenopausal bleeding (Acute) Lytic bone lesions on xray (Acute) Enlarged uterus (Acute) Medical History DINORA (obstructive sleep apnea) Elevated cholesterol Diabetes Surgical History History of bone marrow biopsy Hx of tubal ligation History of breast lump/mass excision History of surgery on wrist H/O section x2 Family History Other Diabetes Heart disease Social History Smoking/Tobacco Use Status: Never Smoking risk assessment performed?: Yes Alcohol Intake: current Alcohol Intake frequency: holidays/special occasions only Drug use: Never Substance use type: does not use Household members: spouse Housing: house What is your relationship status?: Panel score (0-1 are the most socially isolated patients): 1 Do you feel safe at home: Yes Do you feel safe in your relationship?: Yes History History 2 Para 2 Hx # Term Pregnancies Multiple births Hx # Pregnancies Ectopic pregnancies AB induced Hx Number of Living Children AB spontaneous Past Pregnancies Del. Date GA/Weeks # Preg Succ Route Wgt Sex Labor Lgth Anesthesia Location Prov Complic 03/15/86 6 lb 6 oz Female [facility] 08/10/89 [address] [facility] Time Spent with Patient Time Spent with Patient: <45 minutes Time was spent: preparing to see the patient(eg.review tests), obtaining and/or reviewing separately otained hiistory, ordering medications,tests, procedures, referring, communicating with other health critical care technician, indepentently interpreting results, counseling the patient and care coordination
[2023-04-08] MEDS: fentaNYL 100 MCG PATCH TD (17:34)
[2023-04-08] MEDS: fentaNYL 25 MCG PATCH TD (17:37)
== END 2023-04-08 18:21 | disposition short-term general hospital (02) | DRG 54 ==
LOC: ER 15:20 → MS 18:13
PROVIDERS: Admitting Provider Internal Medicine; Emergency Provider Emergency Medicine; PCP Family Medicine; Visit Provider Internal Medicine
DX: C79.31 Secondary malignant neoplasm of brain (principal); G93.6 Cerebral edema; C79.51 Secondary malignant neoplasm of bone; C78.7 Secondary malignant neoplasm of liver and intrahepatic bile duct; C78.01 Secondary malignant neoplasm of right lung; C78.02 Secondary malignant neoplasm of left lung; C55 Malignant neoplasm of uterus, part unspecified; G83.14 Monoplegia of lower limb affecting left nondominant side; G89.3 Neoplasm related pain (acute) (chronic); G47.33 Obstructive sleep apnea (adult) (pediatric); E78.00 Pure hypercholesterolemia, unspecified; E11.9 Type 2 diabetes mellitus without complications; M21.372 Foot drop, left foot; Z79.84 Long term (current) use of oral hypoglycemic drugs
CPT/HCPCS: 00123; 70553; 80053; 96361; 96365; 99285; J1650; 70450; 80320; 81003; 81015; 85025; 99223; 99239; G0378; J1100; J1953; J3490